=== PATIENT | male | born 1940 | race Caucasian/White ===

== ENCOUNTER 2021-11-26 03:09 | Emergency (ER) | payer OTHER ==
[2021-11-26 03:36] LABS: #Eosinphils 0.1 10x3/uL (0.0-0.5); #Monocytes 1.4 10x3/uL (0.0-1.1); #Neutrophils 9.4 10x3/uL (1.5-8.4); %Basophils 0.3 % (0.0-2.0); %Lymphocytes 12.8 % (18.0-47.0); %Monocytes 11.2 % (0.0-10.0); %Neutrophils 74.3 % (40.0-75.0); Hemoglobin 13.9 g/dL (13.5-17.5); Mean Corpuscular HGB CONC 31.4 g/dL (32.0-36.0); Mean Corpuscular Volume 98.7 fl (81.2-95.1); Mean Platelet Volume 12.2 fl (7.4-10.4); Platelet Count 133 10x3/uL (150-450); RBC Distribution Width 12.3 % (11.5-14.5); Red Blood Cell (RBC) Count 4.49 10x6/uL (4.32-5.72); White Blood Cell (WBC) Count 12.6 10x3/uL (3.5-10.5)
[2021-11-26] MEDS ORDERED: Morphine 4 MG/ML VIAL ONE (03:47)
[2021-11-26 03:48] LABS: ALT (SGPT) 34 U/L (8-55); AST (SGOT) 36 U/L (5-34); Albumin 3.9 g/dL (3.4-4.8); Alkaline Phosphatase 54 U/L (40-110); Anion Gap 12 mmol/L (10-20); BUN (Urea Nitrogen) 36 mg/dL (8.4-25.7); Bilirubin, Total 0.7 mg/dL (0.2-1.2); CK (CPK) 126 U/L (30-200); Calc. Creatinine Clearance 0 mL/min (70-130); Calcium 9.2 mg/dL (7.8-10.44); Carbon Dioxide 31 mmol/L (23-31); Chloride 100 mmol/L (98-107); Globulin 2.8 g/dL (2.4-3.5); Glucose 101 mg/dL (83-110); Potassium 4.7 mmol/L (3.5-5.1); Protein, Total 6.7 g/dL (5.8-8.1); Sodium 138 mmol/L (136-145)
[2021-11-26 03:53] LABS: INR-International Normal Ratio 1.1; PTT 26.5 sec (22.0-33.0); Prothrombin Time 11.9 sec (9.5-12.1)
[2021-11-26 04:02] LABS: Bilirubin Neg (Negative); Blood, Urine Negative (Negative); Clarity Clear (Clear); Glucose, Urine (Dipstick) Normal (Negative); Ketone, Urine 5 mg/dL (Negative); Leukocyte Negative (Negative); Nitrite Negative (Negative); Protein, Urine (Dipstick) Negative (Neg-Trace); Urobilinogen Normal mg/dL (Less than 2); pH, Urine 6.5 (5.0-9.0)
[2021-11-26 04:07] LABS: Lipase 75 U/L (8-78); Magnesium 2.2 mg/dL (1.6-2.6)
[2021-11-26 04:42] LABS: SARS-CoV-2 NAA Rapid Test Not Detected (NotDetected)
[2021-11-26] MEDS ORDERED: Enoxaparin Sodium 100 MG/ML SYRINGE ONE (05:45)
[2021-11-26] MEDS ORDERED: Ketorolac Tromethamine 30 MG/ML VIAL ONE (05:45)
[2021-11-26] MEDS ORDERED: Fentanyl 100 MCG/2 ML VIAL ONE (05:45)
[2021-11-26 07:28] LABS: Troponin I 0.015 ng/mL (< 0.028)
== END 2021-11-26 10:19 | disposition short-term general hospital (02) ==
LOC: CSHERS 03:09 → EEVIPCON 03:09 → CSHERS 10:19
DX: I20.9 Angina pectoris, unspecified (principal); Z20.822 Contact with and (suspected) exposure to COVID-19; I11.0 Hypertensive heart disease with heart failure; I50.9 Heart failure, unspecified; Z86.73 Personal history of transient ischemic attack (TIA), and cerebral infarction without residual deficits; M19.90 Unspecified osteoarthritis, unspecified site; Z79.82 Long term (current) use of aspirin; Z79.899 Other long term (current) drug therapy
CPT/HCPCS: 71045; 80053; 81003; 82550; 83690; 83735; 83880; 84484; 85025; 85610; 85730; 93005; 94760; 96372; 96374; 96375; 96376; J1650; J1885; J2270; J3010; U0002

== ENCOUNTER 2021-12-12 15:46 | Inpatient (IN) | payer OTHER ==
[2021-12-12] MEDS ORDERED: methylPREDNISolone Sod Succ/PF 125 MG/2 ML VIAL ONE (16:31)
[2021-12-12] MEDS ORDERED: diphenhydrAMINE 50 MG/ML VIAL ONE (16:31)
[2021-12-12] MEDS ORDERED: Famotidine/PF 20 mg/2ml Vial ONE (16:32)
[2021-12-12 16:38] LABS: #Monocytes 0.8 10x3/uL (0.0-1.1); #Neutrophils 8.2 10x3/uL (1.5-8.4); %Basophils 0.3 % (0.0-2.0); %Eosinophils 0.4 % (0.0-6.0); %Lymphocytes 8.2 % (18.0-47.0); %Monocytes 8.2 % (0.0-10.0); %Neutrophils 82.6 % (40.0-75.0); Mean Corpuscular Hemoglobin 31.5 pg (27.0-33.0); Mean Corpuscular Volume 98.3 fl (81.2-95.1); Mean Platelet Volume 11.9 fl (7.4-10.4); RBC Distribution Width 13.1 % (11.5-14.5); Red Blood Cell (RBC) Count 2.86 10x6/uL (4.32-5.72); White Blood Cell (WBC) Count 9.9 10x3/uL (3.5-10.5)
[2021-12-12 16:39] LABS: Platelet Count 108 10x3/uL (150-450)
[2021-12-12 16:42] LABS: INR-International Normal Ratio 1.3; Prothrombin Time 14.6 sec (9.5-12.1)
[2021-12-12 16:48] LABS: ALT (SGPT) 23 U/L (8-55); AST (SGOT) 22 U/L (5-34); Albumin 2.8 g/dL (3.4-4.8); Alkaline Phosphatase 49 U/L (40-110); Anion Gap 10 mmol/L (10-20); BUN (Urea Nitrogen) 28 mg/dL (8.4-25.7); Bilirubin, Total 0.5 mg/dL (0.2-1.2); Calc. Creatinine Clearance 0 mL/min (70-130); Calcium 7.5 mg/dL (7.8-10.44); Carbon Dioxide 27 mmol/L (23-31); Chloride 103 mmol/L (98-107); Globulin 2.3 g/dL (2.4-3.5); Glucose 152 mg/dL (83-110); Lipase 58 U/L (8-78); Potassium 4.2 mmol/L (3.5-5.1); Protein, Total 5.1 g/dL (5.8-8.1); Sodium 136 mmol/L (136-145)
[2021-12-12 17:12] LABS: SARS-CoV-2 NAA Rapid Test Not Detected (NotDetected)
[2021-12-12] MEDS ORDERED: Fentanyl 100 MCG/2 ML VIAL ONE (17:26)
[2021-12-12 21:40] VITALS: BMI 33.3
[2021-12-12] MEDS: HYDROcodone/Acetaminophen 10/325 mg Tablet PO PRN (23:06)
[2021-12-12] MEDS: Sodium Chloride 0.9% 1,000 ML IV SCH (23:10)
[2021-12-13] MEDS: HYDROcodone/Acetaminophen 10/325 mg Tablet PO PRN ×3 (02:36→21:28)
[2021-12-13 03:38] LABS: #Monocytes 0.1 10x3/uL (0.0-1.1); #Neutrophils 8.2 10x3/uL (1.5-8.4); %Neutrophils 93.4 % (40.0-75.0); Hemoglobin 9.8 g/dL (13.5-17.5); Mean Corpuscular HGB CONC 31.7 g/dL (32.0-36.0); Mean Corpuscular Hemoglobin 30.5 pg (27.0-33.0); Mean Corpuscular Volume 96.3 fl (81.2-95.1); Mean Platelet Volume 12.2 fl (7.4-10.4); Platelet Count 125 10x3/uL (150-450); RBC Distribution Width 13.8 % (11.5-14.5); Red Blood Cell (RBC) Count 3.21 10x6/uL (4.32-5.72); White Blood Cell (WBC) Count 8.8 10x3/uL (3.5-10.5)
[2021-12-13 03:53] LABS: Anion Gap 14 mmol/L (10-20); BUN (Urea Nitrogen) 26 mg/dL (8.4-25.7); Calc. Creatinine Clearance 82 mL/min (70-130); Carbon Dioxide 21 mmol/L (23-31); Chloride 105 mmol/L (98-107); Glucose 204 mg/dL (83-110); Magnesium 2.1 mg/dL (1.6-2.6); Potassium 4.3 mmol/L (3.5-5.1); Sodium 136 mmol/L (136-145)
[2021-12-13] MEDS: Carvedilol 25 MG TAB PO SCH ×2 (08:29→17:20)
[2021-12-13 12:43] LABS: Hemoglobin A1c 5.9 % (4.0-6.0)
[2021-12-13] MEDS: Sodium Chloride 0.9% 1,000 ML IV SCH (17:25)
[2021-12-13] MEDS: Atorvastatin Calcium 40 MG TAB PO SCH (19:41)
[2021-12-14] MEDS: HYDROcodone/Acetaminophen 10/325 mg Tablet PO PRN (05:58)
[2021-12-14] MEDS: Carvedilol 25 MG TAB PO SCH ×2 (10:04→17:53)
[2021-12-14] MEDS ORDERED: Furosemide 40 MG/4 ML VIAL SLOW IVP SCH ×2 (13:45→18:00)
[2021-12-14] MEDS ORDERED: Polyethylene Glycol 3350 17 GM Packet PO PRN (17:18)
[2021-12-14] MEDS: HYDROcodone/Acetaminophen 5/325 mg Tablet PO PRN (18:42)
[2021-12-14] MEDS: Atorvastatin Calcium 40 MG TAB PO SCH (22:01)
[2021-12-15 03:51] LABS: #Basophils 0.1 10x3/uL (0.0-0.2); #Eosinphils 0.3 10x3/uL (0.0-0.5); #Monocytes 0.9 10x3/uL (0.0-1.1); #Neutrophils 7.6 10x3/uL (1.5-8.4); %Basophils 0.5 % (0.0-2.0); %Eosinophils 3.3 % (0.0-6.0); %Lymphocytes 9.4 % (18.0-47.0); %Monocytes 9.1 % (0.0-10.0); %Neutrophils 77.2 % (40.0-75.0); Hemoglobin 8.8 g/dL (13.5-17.5); Mean Corpuscular HGB CONC 31.1 g/dL (32.0-36.0); Mean Corpuscular Hemoglobin 31.1 pg (27.0-33.0); Mean Platelet Volume 11.8 fl (7.4-10.4); Platelet Count 140 10x3/uL (150-450); RBC Distribution Width 14.1 % (11.5-14.5); Red Blood Cell (RBC) Count 2.83 10x6/uL (4.32-5.72); White Blood Cell (WBC) Count 9.8 10x3/uL (3.5-10.5)
[2021-12-15 04:10] LABS: Anion Gap 13 mmol/L (10-20); BUN (Urea Nitrogen) 32 mg/dL (8.4-25.7); Calc. Creatinine Clearance 100 mL/min (70-130); Calcium 8.2 mg/dL (7.8-10.44); Carbon Dioxide 27 mmol/L (23-31); Chloride 103 mmol/L (98-107); Glucose 127 mg/dL (83-110); Potassium 4.3 mmol/L (3.5-5.1); Sodium 139 mmol/L (136-145)
[2021-12-15] MEDS: Carvedilol 25 MG TAB PO SCH (09:12)
[2021-12-15] MEDS: Polyethylene Glycol 3350 17 GM Packet PO SCH (09:14)
[2021-12-15] MEDS: Carvedilol 6.25 MG TAB PO SCH (16:15)
[2021-12-15] MEDS ORDERED: Furosemide 40 MG/4 ML VIAL SLOW IVP SCH (21:00)
[2021-12-15] MEDS: Atorvastatin Calcium 40 MG TAB PO SCH (21:06)
[2021-12-16 03:59] LABS: #Eosinphils 0.3 10x3/uL (0.0-0.5); #Monocytes 0.8 10x3/uL (0.0-1.1); %Basophils 0.2 % (0.0-2.0); %Eosinophils 3.8 % (0.0-6.0); %Lymphocytes 12.2 % (18.0-47.0); %Monocytes 9.5 % (0.0-10.0); %Neutrophils 73.9 % (40.0-75.0); Hemoglobin 8.9 g/dL (13.5-17.5); Mean Corpuscular HGB CONC 30.9 g/dL (32.0-36.0); Mean Corpuscular Hemoglobin 31.3 pg (27.0-33.0); Mean Corpuscular Volume 101.4 fl (81.2-95.1); Mean Platelet Volume 12.4 fl (7.4-10.4); Platelet Count 143 10x3/uL (150-450); Red Blood Cell (RBC) Count 2.84 10x6/uL (4.32-5.72); White Blood Cell (WBC) Count 8.2 10x3/uL (3.5-10.5)
[2021-12-16 04:28] LABS: Anion Gap 10 mmol/L (10-20); BUN (Urea Nitrogen) 28 mg/dL (8.4-25.7); Calc. Creatinine Clearance 115 mL/min (70-130); Calcium 8.7 mg/dL (7.8-10.44); Carbon Dioxide 30 mmol/L (23-31); Chloride 103 mmol/L (98-107); Glucose 97 mg/dL (83-110); Potassium 4.3 mmol/L (3.5-5.1); Sodium 139 mmol/L (136-145)
[2021-12-16] MEDS ORDERED: Albuterol Sulfate 2.5 mg/3 ml Neb NEB SCH (07:00)
[2021-12-16] MEDS: Clopidogrel Bisulfate 75 MG TAB PO SCH (08:39)
[2021-12-16] MEDS: Carvedilol 6.25 MG TAB PO SCH ×2 (08:40→16:40)
[2021-12-16] MEDS: Aspirin 81 mg Enteric Coated Tablet PO SCH (08:40)
[2021-12-16] MEDS: Polyethylene Glycol 3350 17 GM Packet PO SCH (08:40)
[2021-12-16] MEDS ORDERED: Furosemide 40 MG/4 ML VIAL SLOW IVP SCH ×2 (09:00→14:00)
[2021-12-16 11:10] LABS: Legionella Urinary Ag Negative (Negative)
[2021-12-16 11:11] LABS: Strep pneumo Urine Ag NEGATIVE (NEGATIVE)
[2021-12-16] MEDS: Atorvastatin Calcium 40 MG TAB PO SCH (20:34)
[2021-12-16] MEDS ORDERED: Mag-Al Plus 1200 MG/1200 MG/120 MG/30 ML UDCUP PO SCH (22:15)
[2021-12-17 04:25] LABS: #Eosinphils 0.3 10x3/uL (0.0-0.5); #Monocytes 0.9 10x3/uL (0.0-1.1); #Neutrophils 4.9 10x3/uL (1.5-8.4); %Basophils 0.4 % (0.0-2.0); %Eosinophils 4.7 % (0.0-6.0); %Lymphocytes 14.6 % (18.0-47.0); Hemoglobin 8.9 g/dL (13.5-17.5); Mean Corpuscular HGB CONC 30.9 g/dL (32.0-36.0); Mean Corpuscular Hemoglobin 31.4 pg (27.0-33.0); Mean Corpuscular Volume 101.8 fl (81.2-95.1); Mean Platelet Volume 11.7 fl (7.4-10.4); Platelet Count 175 10x3/uL (150-450); RBC Distribution Width 13.9 % (11.5-14.5); Red Blood Cell (RBC) Count 2.83 10x6/uL (4.32-5.72); White Blood Cell (WBC) Count 7.2 10x3/uL (3.5-10.5)
[2021-12-17 04:44] LABS: Anion Gap 13 mmol/L (10-20); BUN (Urea Nitrogen) 27 mg/dL (8.4-25.7); Calc. Creatinine Clearance 98 mL/min (70-130); Calcium 8.8 mg/dL (7.8-10.44); Carbon Dioxide 31 mmol/L (23-31); Chloride 100 mmol/L (98-107); Glucose 103 mg/dL (83-110); Potassium 4.4 mmol/L (3.5-5.1); Sodium 140 mmol/L (136-145)
[2021-12-17] MEDS: Clopidogrel Bisulfate 75 MG TAB PO SCH (07:40)
[2021-12-17] MEDS: Carvedilol 6.25 MG TAB PO SCH ×2 (07:40→17:31)
[2021-12-17] MEDS: Polyethylene Glycol 3350 17 GM Packet PO SCH (07:41)
[2021-12-17] MEDS: Aspirin 81 mg Enteric Coated Tablet PO SCH (07:41)
[2021-12-17] MEDS: HYDROcodone/Acetaminophen 5/325 mg Tablet PO PRN (20:50)
[2021-12-17] MEDS: Doxycycline 100 MG CAP PO SCH (21:03)
[2021-12-17] MEDS: Atorvastatin Calcium 40 MG TAB PO SCH (21:03)
[2021-12-17] MEDS: cefTRIAXone\\ROCEPHIN 1 GM in Sodium Chloride 0.9% 100 ML IVPB SCH (21:03)
[2021-12-18 04:26] LABS: #Eosinphils 0.3 10x3/uL (0.0-0.5); #Monocytes 0.9 10x3/uL (0.0-1.1); #Neutrophils 5.4 10x3/uL (1.5-8.4); %Basophils 0.5 % (0.0-2.0); %Eosinophils 4.4 % (0.0-6.0); %Lymphocytes 13.2 % (18.0-47.0); %Neutrophils 69.5 % (40.0-75.0); Hemoglobin 9.2 g/dL (13.5-17.5); Mean Corpuscular Hemoglobin 30.4 pg (27.0-33.0); Mean Corpuscular Volume 101.3 fl (81.2-95.1); Mean Platelet Volume 11.3 fl (7.4-10.4); Platelet Count 199 10x3/uL (150-450); RBC Distribution Width 14.3 % (11.5-14.5); Red Blood Cell (RBC) Count 3.03 10x6/uL (4.32-5.72); White Blood Cell (WBC) Count 7.7 10x3/uL (3.5-10.5)
[2021-12-18 04:45] LABS: Anion Gap 12 mmol/L (10-20); BUN (Urea Nitrogen) 23 mg/dL (8.4-25.7); Calc. Creatinine Clearance 113 mL/min (70-130); Calcium 8.9 mg/dL (7.8-10.44); Carbon Dioxide 29 mmol/L (23-31); Chloride 101 mmol/L (98-107); Glucose 114 mg/dL (83-110); Potassium 4.6 mmol/L (3.5-5.1); Sodium 137 mmol/L (136-145)
[2021-12-18] MEDS: HYDROcodone/Acetaminophen 5/325 mg Tablet PO PRN (05:26)
[2021-12-18] MEDS: Furosemide 40 MG/4 ML VIAL SLOW IVP SCH ×2 (05:47→12:56)
[2021-12-18] MEDS: Carvedilol 6.25 MG TAB PO SCH ×2 (08:38→16:35)
[2021-12-18] MEDS: Polyethylene Glycol 3350 17 GM Packet PO SCH (08:39)
[2021-12-18] MEDS: Aspirin 81 mg Enteric Coated Tablet PO SCH (08:39)
[2021-12-18] MEDS: Doxycycline 100 MG CAP PO SCH ×2 (08:39→21:13)
[2021-12-18] MEDS: Clopidogrel Bisulfate 75 MG TAB PO SCH (08:39)
[2021-12-18] MEDS ORDERED: Furosemide 100 MG/10 ML VIAL SLOW IVP SCH (18:30)
[2021-12-18] MEDS: Atorvastatin Calcium 40 MG TAB PO SCH (21:13)
[2021-12-18] MEDS: cefTRIAXone\\ROCEPHIN 1 GM in Sodium Chloride 0.9% 100 ML IVPB SCH (21:14)
[2021-12-18] MEDS: Enoxaparin Sodium 40 MG/0.4 ML SYRINGE SC SCH (22:28)
[2021-12-19] MEDS: HYDROcodone/Acetaminophen 5/325 mg Tablet PO PRN (02:05)
[2021-12-19 04:13] LABS: #Basophils 0.1 10x3/uL (0.0-0.2); #Eosinphils 0.4 10x3/uL (0.0-0.5); #Monocytes 1.2 10x3/uL (0.0-1.1); #Neutrophils 5.2 10x3/uL (1.5-8.4); %Basophils 0.6 % (0.0-2.0); %Eosinophils 4.7 % (0.0-6.0); %Lymphocytes 15.2 % (18.0-47.0); %Monocytes 14.3 % (0.0-10.0); %Neutrophils 64.6 % (40.0-75.0); Hemoglobin 10.1 g/dL (13.5-17.5); Mean Corpuscular HGB CONC 31.1 g/dL (32.0-36.0); Mean Corpuscular Hemoglobin 31.1 pg (27.0-33.0); Platelet Count 231 10x3/uL (150-450); RBC Distribution Width 14.4 % (11.5-14.5); Red Blood Cell (RBC) Count 3.25 10x6/uL (4.32-5.72); White Blood Cell (WBC) Count 8.1 10x3/uL (3.5-10.5)
[2021-12-19 04:17] LABS: Anion Gap 11 mmol/L (10-20); BUN (Urea Nitrogen) 25 mg/dL (8.4-25.7); Calc. Creatinine Clearance 105 mL/min (70-130); Calcium 8.9 mg/dL (7.8-10.44); Carbon Dioxide 32 mmol/L (23-31); Chloride 98 mmol/L (98-107); Glucose 111 mg/dL (83-110); Potassium 4.4 mmol/L (3.5-5.1); Sodium 137 mmol/L (136-145)
[2021-12-19] MEDS: Furosemide 40 MG/4 ML VIAL SLOW IVP SCH ×2 (06:38→15:58)
[2021-12-19] MEDS: Carvedilol 6.25 MG TAB PO SCH ×2 (08:42→17:22)
[2021-12-19] MEDS: Doxycycline 100 MG CAP PO SCH ×2 (08:42→20:54)
[2021-12-19] MEDS: Clopidogrel Bisulfate 75 MG TAB PO SCH (08:42)
[2021-12-19] MEDS: Polyethylene Glycol 3350 17 GM Packet PO SCH (08:43)
[2021-12-19] MEDS: Aspirin 81 mg Enteric Coated Tablet PO SCH (08:43)
[2021-12-19] MEDS: HYDROcodone/Acetaminophen 10/325 mg Tablet PO PRN (11:24)
[2021-12-19] MEDS: cefTRIAXone\\ROCEPHIN 1 GM in Sodium Chloride 0.9% 100 ML IVPB SCH (20:42)
[2021-12-19] MEDS: Atorvastatin Calcium 40 MG TAB PO SCH (20:48)
[2021-12-19] MEDS: Enoxaparin Sodium 40 MG/0.4 ML SYRINGE SC SCH (20:54)
[2021-12-20 04:13] LABS: #Eosinphils 0.4 10x3/uL (0.0-0.5); #Monocytes 1.2 10x3/uL (0.0-1.1); #Neutrophils 5.7 10x3/uL (1.5-8.4); %Basophils 0.4 % (0.0-2.0); %Eosinophils 4.4 % (0.0-6.0); %Lymphocytes 13.8 % (18.0-47.0); %Monocytes 13.7 % (0.0-10.0); %Neutrophils 67.3 % (40.0-75.0); Hemoglobin 9.8 g/dL (13.5-17.5); Mean Corpuscular HGB CONC 31.7 g/dL (32.0-36.0); Mean Corpuscular Hemoglobin 31.3 pg (27.0-33.0); Mean Corpuscular Volume 98.7 fl (81.2-95.1); Mean Platelet Volume 10.8 fl (7.4-10.4); Platelet Count 232 10x3/uL (150-450); RBC Distribution Width 14.4 % (11.5-14.5); Red Blood Cell (RBC) Count 3.13 10x6/uL (4.32-5.72); White Blood Cell (WBC) Count 8.5 10x3/uL (3.5-10.5)
[2021-12-20 04:26] LABS: Anion Gap 14 mmol/L (10-20); BUN (Urea Nitrogen) 32 mg/dL (8.4-25.7); Calc. Creatinine Clearance 86 mL/min (70-130); Calcium 8.8 mg/dL (7.8-10.44); Carbon Dioxide 31 mmol/L (23-31); Chloride 96 mmol/L (98-107); Glucose 102 mg/dL (83-110); Potassium 4.3 mmol/L (3.5-5.1); Sodium 137 mmol/L (136-145)
[2021-12-20] MEDS: Furosemide 40 MG/4 ML VIAL SLOW IVP SCH ×2 (06:09→14:53)
[2021-12-20] MEDS: Doxycycline 100 MG CAP PO SCH (08:16)
[2021-12-20] MEDS: Polyethylene Glycol 3350 17 GM Packet PO SCH (08:16)
[2021-12-20] MEDS: Clopidogrel Bisulfate 75 MG TAB PO SCH (08:17)
[2021-12-20] MEDS: Aspirin 81 mg Enteric Coated Tablet PO SCH (08:17)
[2021-12-20] MEDS: Carvedilol 6.25 MG TAB PO SCH ×2 (08:17→16:56)
[2021-12-20 18:24] LABS: SARS-CoV-2 PCR by NAA Not Detected (NotDetected)
[2021-12-20 21:00] VITALS: BP 97/56; TEMP 96.5
== END 2021-12-20 20:40 | disposition home or self-care (01) | DRG 291 ==
LOC: CSHERS 15:46 → EEVIPCON 15:46 → INTOOBSV 21:20 → CSHICU 21:20 → CSHTELE 12-13 00:50 → OBSVTOIN 12-16 08:33
PROVIDERS: ADMIT Family Medicine; ATTEND Internal Medicine
PROC: 30233N1 Transfusion of Nonautologous Red Blood Cells into Peripheral Vein, Percutaneous Approach (ICD-10-PCS; principal; 2021-12-12)
DX: I11.0 Hypertensive heart disease with heart failure (principal); J96.01 Acute respiratory failure with hypoxia; I50.33 Acute on chronic diastolic (congestive) heart failure; I48.92 Unspecified atrial flutter; D62 Acute posthemorrhagic anemia; I25.10 Atherosclerotic heart disease of native coronary artery without angina pectoris; I48.0 Paroxysmal atrial fibrillation; I44.30 Unspecified atrioventricular block; I34.0 Nonrheumatic mitral (valve) insufficiency; Z20.822 Contact with and (suspected) exposure to COVID-19; S30.1XXA Contusion of abdominal wall, initial encounter; S70.02XA Contusion of left hip, initial encounter; W19.XXXA Unspecified fall, initial encounter; Y92.89 Other specified places as the place of occurrence of the external cause; Z88.8 Allergy status to other drugs, medicaments and biological substances; Z95.5 Presence of coronary angioplasty implant and graft; Z86.73 Personal history of transient ischemic attack (TIA), and cerebral infarction without residual deficits; Z87.891 Personal history of nicotine dependence; Z79.01 Long term (current) use of anticoagulants
CPT/HCPCS: 36415; 36430; 70450; 71045; 71046; 71260; 72125; 74177; 78451; 80048; 80053; 83036; 83690; 83735; 83880; 84484; 85025; 85379; 85610; 86850; 86900; 86901; 87449; 87899; 93005; 93306; 93970; 94640; 94760; 96374; 96375; A9540; J0696; J1200; J1650; J1940; J2930; J3010; J3490; J7050; J7611; J7620; P9016; S0028; U0002; U0003; U0005

== ENCOUNTER 2022-01-07 10:32 | Inpatient (IN) | payer OTHER ==
[2022-01-07] MEDS ORDERED: Morphine 4 MG/ML VIAL ONE (11:15)
[2022-01-07 11:38] LABS: #Eosinphils 0.2 10x3/uL (0.0-0.5); #Neutrophils 5.9 10x3/uL (1.5-8.4); %Basophils 0.4 % (0.0-2.0); %Eosinophils 2.9 % (0.0-6.0); %Lymphocytes 7.6 % (18.0-47.0); %Monocytes 12.6 % (0.0-10.0); %Neutrophils 76.1 % (40.0-75.0); Hemoglobin 11.3 g/dL (13.5-17.5); Mean Corpuscular Hemoglobin 31.5 pg (27.0-33.0); Mean Corpuscular Volume 101.7 fl (81.2-95.1); Mean Platelet Volume 11.1 fl (7.4-10.4); Platelet Count 159 10x3/uL (150-450); RBC Distribution Width 14.6 % (11.5-14.5); Red Blood Cell (RBC) Count 3.59 10x6/uL (4.32-5.72); White Blood Cell (WBC) Count 7.8 10x3/uL (3.5-10.5)
[2022-01-07 11:54] LABS: ALT (SGPT) 23 U/L (8-55); AST (SGOT) 25 U/L (5-34); Albumin 3.3 g/dL (3.4-4.8); Alkaline Phosphatase 72 U/L (40-110); Anion Gap 15 mmol/L (10-20); BUN (Urea Nitrogen) 27 mg/dL (8.4-25.7); Bilirubin, Total 0.8 mg/dL (0.2-1.2); Calc. Creatinine Clearance 0 mL/min (70-130); Carbon Dioxide 26 mmol/L (23-31); Chloride 103 mmol/L (98-107); Globulin 2.8 g/dL (2.4-3.5); Glucose 97 mg/dL (83-110); Lipase 33 U/L (8-78); Protein, Total 6.1 g/dL (5.8-8.1); Sodium 140 mmol/L (136-145)
[2022-01-07 12:11] LABS: CKMB 3.4 ng/mL (0-6.6)
[2022-01-07 13:30] LABS: SARS-CoV-2 NAA Rapid Test Not Detected (NotDetected)
[2022-01-07] MEDS ORDERED: Furosemide 40 MG/4 ML VIAL ONE (19:26)
[2022-01-07] MEDS ORDERED: Calcium Carbonate 500 MG ChewTAB PO PRN (19:58)
[2022-01-07] MEDS ORDERED: Ondansetron PF 4 MG/2 ML Vial IVP PRN (19:58)
[2022-01-07] MEDS ORDERED: Senokot S 8.6-50 MG TAB PO PRN (19:58)
[2022-01-07] MEDS ORDERED: Guaifenesin DM 100-10/5 ML UDCUP PO PRN (19:58)
[2022-01-07] MEDS ORDERED: Zolpidem Tartrate 5 MG TAB PO PRN (19:58)
[2022-01-07] MEDS ORDERED: Nitroglycerin 0.4 MG TAB (25 Tab Bottle) SL PRN (20:01)
[2022-01-07] MEDS ORDERED: Albuterol Sulfate 2.5 mg/3 ml Neb NEB PRN (20:02)
[2022-01-07 22:30] LABS: INR-International Normal Ratio 1.2; PTT 27.9 sec (22.0-33.0); Prothrombin Time 13.4 sec (9.5-12.1)
[2022-01-07 22:49] LABS: CKMB 3.5 ng/mL (0-6.6)
[2022-01-07] MEDS ORDERED: Enoxaparin Sodium 80 MG/0.8 ML SYRINGE SC SCH (23:59)
[2022-01-08] MEDS: Atorvastatin Calcium 40 MG TAB PO SCH ×2 (00:33→20:48)
[2022-01-08 04:18] LABS: INR-International Normal Ratio 1.3; PTT 33.3 sec (22.0-33.0); Prothrombin Time 14.4 sec (9.5-12.1)
[2022-01-08 04:20] LABS: #Eosinphils 0.2 10x3/uL (0.0-0.5); #Neutrophils 4.5 10x3/uL (1.5-8.4); %Basophils 0.5 % (0.0-2.0); %Eosinophils 3.7 % (0.0-6.0); %Lymphocytes 11.4 % (18.0-47.0); %Monocytes 14.8 % (0.0-10.0); %Neutrophils 69.3 % (40.0-75.0); Hemoglobin 11.3 g/dL (13.5-17.5); Mean Corpuscular HGB CONC 30.1 g/dL (32.0-36.0); Mean Corpuscular Hemoglobin 30.6 pg (27.0-33.0); Mean Corpuscular Volume 101.6 fl (81.2-95.1); Mean Platelet Volume 11.3 fl (7.4-10.4); Platelet Count 163 10x3/uL (150-450); RBC Distribution Width 14.6 % (11.5-14.5); Red Blood Cell (RBC) Count 3.69 10x6/uL (4.32-5.72); White Blood Cell (WBC) Count 6.5 10x3/uL (3.5-10.5)
[2022-01-08 04:22] LABS: Anion Gap 13 mmol/L (10-20); BUN (Urea Nitrogen) 22 mg/dL (8.4-25.7); Calc. Creatinine Clearance 101 mL/min (70-130); Calcium 8.9 mg/dL (7.8-10.44); Carbon Dioxide 29 mmol/L (23-31); Chloride 102 mmol/L (98-107); Glucose 100 mg/dL (83-110); Potassium 3.8 mmol/L (3.5-5.1); Sodium 140 mmol/L (136-145)
[2022-01-08 04:42] LABS: Thyroid Stimulating Hormone 0.9084 uIU/mL (0.35-4.94)
[2022-01-08] MEDS: Furosemide 40 MG/4 ML VIAL SLOW IVP SCH ×2 (05:02→18:37)
[2022-01-08] MEDS: Acetaminophen 325 MG TAB PO PRN ×2 (05:03→20:48)
[2022-01-08] MEDS: Enoxaparin Sodium 80 MG/0.8 ML SYRINGE SC SCH ×2 (08:57→20:49)
[2022-01-08] MEDS ORDERED: Aspirin 81 mg Enteric Coated Tablet PO SCH (09:00)
[2022-01-08 12:15] VITALS: BMI 34.2
[2022-01-08] MEDS ORDERED: Warfarin Sodium 5 MG TAB PO SCH (17:00)
[2022-01-08] MEDS: Lisinopril 5 MG TAB PO SCH (18:36)
[2022-01-08] MEDS: Carvedilol 6.25 MG TAB PO SCH (18:36)
[2022-01-08] MEDS: Furosemide 20 MG/2 ML VIAL SLOW IVP SCH ×2 (18:37→18:59)
[2022-01-08] MEDS ORDERED: traMADol HCl 50 MG TAB PO SCH (21:15)
[2022-01-09] MEDS: Acetaminophen 325 MG TAB PO PRN (02:58)
[2022-01-09 04:37] LABS: Hemoglobin 11.9 g/dL (13.5-17.5); Mean Corpuscular HGB CONC 30.4 g/dL (32.0-36.0); Mean Corpuscular Hemoglobin 30.7 pg (27.0-33.0); Mean Corpuscular Volume 101.3 fl (81.2-95.1); Platelet Count 170 10x3/uL (150-450); RBC Distribution Width 14.4 % (11.5-14.5); Red Blood Cell (RBC) Count 3.87 10x6/uL (4.32-5.72); White Blood Cell (WBC) Count 5.1 10x3/uL (3.5-10.5)
[2022-01-09 04:48] LABS: Anion Gap 14 mmol/L (10-20); BUN (Urea Nitrogen) 22 mg/dL (8.4-25.7); Calc. Creatinine Clearance 107 mL/min (70-130); Calcium 8.8 mg/dL (7.8-10.44); Carbon Dioxide 29 mmol/L (23-31); Chloride 102 mmol/L (98-107); Glucose 95 mg/dL (83-110); Potassium 4.4 mmol/L (3.5-5.1); Sodium 141 mmol/L (136-145)
[2022-01-09] MEDS: traMADol HCl 50 MG TAB PO PRN ×2 (04:55→22:05)
[2022-01-09] MEDS: Furosemide 40 MG/4 ML VIAL SLOW IVP SCH (05:52)
[2022-01-09 08:49] LABS: INR-International Normal Ratio 1.2; Prothrombin Time 13.3 sec (9.5-12.1)
[2022-01-09] MEDS: Enoxaparin Sodium 80 MG/0.8 ML SYRINGE SC SCH (10:00)
[2022-01-09] MEDS: Carvedilol 6.25 MG TAB PO SCH ×2 (10:01→16:25)
[2022-01-09] MEDS: Lisinopril 5 MG TAB PO SCH (10:01)
[2022-01-09] MEDS: Clopidogrel Bisulfate 75 MG TAB PO SCH (10:16)
[2022-01-09] MEDS ORDERED: Furosemide 20 MG TAB PO SCH (16:00)
[2022-01-09] MEDS ORDERED: Warfarin Sodium 7.5 MG TAB PO SCH (17:00)
[2022-01-09] MEDS: Atorvastatin Calcium 40 MG TAB PO SCH (22:02)
[2022-01-09] MEDS: Apixaban 5 MG TAB PO SCH (22:02)
[2022-01-10] MEDS: Apixaban 5 MG TAB PO SCH (07:48)
[2022-01-10] MEDS: Carvedilol 6.25 MG TAB PO SCH (07:49)
[2022-01-10] MEDS: Clopidogrel Bisulfate 75 MG TAB PO SCH (07:49)
[2022-01-10] MEDS ORDERED: Furosemide 20 MG TAB PO SCH (09:00)
[2022-01-10 12:17] VITALS: BP 104/50; TEMP 96.5
[2022-01-10] MEDS: Lisinopril 5 MG TAB PO SCH (13:02)
[2022-01-10] MEDS: traMADol HCl 50 MG TAB PO PRN (13:26)
== END 2022-01-10 16:11 | DRG 291 ==
LOC: CSHERS 10:32 → CSHTELE 22:44
PROVIDERS: ADMIT Student in an Organized Health Care Education/Training Program; ATTEND Internal Medicine
DX: I13.0 Hypertensive heart and chronic kidney disease with heart failure and stage 1 through stage 4 chronic kidney disease, or unspecified chronic kidney disease (principal); J96.01 Acute respiratory failure with hypoxia; I50.33 Acute on chronic diastolic (congestive) heart failure; I48.92 Unspecified atrial flutter; Z20.822 Contact with and (suspected) exposure to COVID-19; E78.5 Hyperlipidemia, unspecified; I48.0 Paroxysmal atrial fibrillation; D53.9 Nutritional anemia, unspecified; N18.2 Chronic kidney disease, stage 2 (mild); I25.10 Atherosclerotic heart disease of native coronary artery without angina pectoris; Z95.5 Presence of coronary angioplasty implant and graft; Z88.8 Allergy status to other drugs, medicaments and biological substances; Z79.82 Long term (current) use of aspirin; Z79.899 Other long term (current) drug therapy; Z79.01 Long term (current) use of anticoagulants; Z86.73 Personal history of transient ischemic attack (TIA), and cerebral infarction without residual deficits
CPT/HCPCS: 36415; 71045; 80048; 80053; 82553; 82607; 82746; 83690; 83880; 84443; 84484; 85025; 85027; 85610; 85730; 93005; 93010; 94640; 94760; 96374; 96375; J1650; J1940; J2270; J7620; U0002

== ENCOUNTER 2022-02-23 07:40 | Inpatient (IN) | payer OTHER ==
[2022-02-23 08:48] LABS: #Eosinphils 0.1 10x3/uL (0.0-0.5); #Monocytes 1.3 10x3/uL (0.0-1.1); #Neutrophils 6.5 10x3/uL (1.5-8.4); %Basophils 0.2 % (0.0-2.0); %Eosinophils 0.9 % (0.0-6.0); %Lymphocytes 11.8 % (18.0-47.0); %Monocytes 14.4 % (0.0-10.0); %Neutrophils 72.4 % (40.0-75.0); Hemoglobin 9.2 g/dL (13.5-17.5); Mean Corpuscular HGB CONC 31.3 g/dL (32.0-36.0); Mean Corpuscular Hemoglobin 30.5 pg (27.0-33.0); Mean Corpuscular Volume 97.4 fl (81.2-95.1); Mean Platelet Volume 11.4 fl (7.4-10.4); Platelet Count 142 10x3/uL (150-450); RBC Distribution Width 13.6 % (11.5-14.5); Red Blood Cell (RBC) Count 3.02 10x6/uL (4.32-5.72)
[2022-02-23 09:00] LABS: ALT (SGPT) 14 U/L (8-55); AST (SGOT) 19 U/L (5-34); Albumin 3.1 g/dL (3.4-4.8); Alkaline Phosphatase 52 U/L (40-110); Anion Gap 14 mmol/L (10-20); BUN (Urea Nitrogen) 21 mg/dL (8.4-25.7); Bilirubin, Total 1.1 mg/dL (0.2-1.2); CK (CPK) 136 U/L (30-200); Calc. Creatinine Clearance 0 mL/min (70-130); Calcium 8.4 mg/dL (7.8-10.44); Carbon Dioxide 25 mmol/L (23-31); Chloride 103 mmol/L (98-107); Glucose 115 mg/dL (83-110); Protein, Total 5.1 g/dL (5.8-8.1); Sodium 138 mmol/L (136-145)
[2022-02-23 09:17] LABS: PTT 49.9 sec (22.0-33.0); Prothrombin Time 65.8 sec (9.5-12.1)
[2022-02-23 09:19] LABS: INR-International Normal Ratio 6.7
[2022-02-23 09:28] LABS: SARS-CoV-2 NAA Rapid Test Not Detected (NotDetected)
[2022-02-23] MEDS ORDERED: Morphine 2 MG/ML VIAL ONE (09:42)
[2022-02-23] MEDS ORDERED: Nitroglycerin 0.4 MG TAB (25 Tab Bottle) SL PRN (10:17)
[2022-02-23] MEDS ORDERED: Ondansetron PF 4 MG/2 ML Vial IVP PRN (10:19)
[2022-02-23] MEDS ORDERED: Acetaminophen 325 MG TAB PO PRN (10:19)
[2022-02-23 11:26] LABS: Troponin I Less than 0.010 ng/mL (< 0.028)
[2022-02-23] MEDS: HYDROcodone/Acetaminophen 10/325 mg Tablet PO PRN ×2 (14:10→20:32)
[2022-02-23 14:51] LABS: Troponin I Less than 0.010 ng/mL (< 0.028)
[2022-02-23] MEDS: Carvedilol 6.25 MG TAB PO SCH (17:09)
[2022-02-23] MEDS: Atorvastatin Calcium 40 MG TAB PO SCH (20:29)
[2022-02-24 04:53] LABS: Anion Gap 10 mmol/L (10-20); BUN (Urea Nitrogen) 19 mg/dL (8.4-25.7); Calc. Creatinine Clearance 101 mL/min (70-130); Calcium 8.4 mg/dL (7.8-10.44); Carbon Dioxide 27 mmol/L (23-31); Chloride 105 mmol/L (98-107); Glucose 98 mg/dL (83-110); Potassium 4.5 mmol/L (3.5-5.1); Sodium 137 mmol/L (136-145)
[2022-02-24 04:59] LABS: #Eosinphils 0.1 10x3/uL (0.0-0.5); #Monocytes 1.2 10x3/uL (0.0-1.1); #Neutrophils 6.4 10x3/uL (1.5-8.4); %Basophils 0.5 % (0.0-2.0); %Eosinophils 1.5 % (0.0-6.0); %Lymphocytes 9.4 % (18.0-47.0); %Monocytes 13.5 % (0.0-10.0); %Neutrophils 74.9 % (40.0-75.0); Hemoglobin 9.2 g/dL (13.5-17.5); Mean Corpuscular HGB CONC 31.6 g/dL (32.0-36.0); Mean Platelet Volume 11.2 fl (7.4-10.4); RBC Distribution Width 13.6 % (11.5-14.5); Red Blood Cell (RBC) Count 2.97 10x6/uL (4.32-5.72); White Blood Cell (WBC) Count 8.5 10x3/uL (3.5-10.5)
[2022-02-24 05:10] LABS: Platelet Count 144 10x3/uL (150-450)
[2022-02-24 06:29] LABS: Prothrombin Time 80.5 sec (9.5-12.1)
[2022-02-24 06:31] LABS: INR-International Normal Ratio 8.3
[2022-02-24] MEDS: Carvedilol 6.25 MG TAB PO SCH ×2 (08:44→15:41)
[2022-02-24] MEDS: Furosemide 20 MG TAB PO SCH (08:44)
[2022-02-24] MEDS: Lisinopril 5 MG TAB PO SCH (08:45)
[2022-02-24] MEDS: HYDROcodone/Acetaminophen 10/325 mg Tablet PO PRN ×3 (08:49→20:34)
[2022-02-24] MEDS: Atorvastatin Calcium 40 MG TAB PO SCH (20:33)
[2022-02-25 05:49] LABS: #Eosinphils 0.1 10x3/uL (0.0-0.5); #Monocytes 1.2 10x3/uL (0.0-1.1); #Neutrophils 6.2 10x3/uL (1.5-8.4); %Basophils 0.3 % (0.0-2.0); %Eosinophils 1.6 % (0.0-6.0); %Lymphocytes 11.4 % (18.0-47.0); %Monocytes 13.5 % (0.0-10.0); %Neutrophils 72.7 % (40.0-75.0); Mean Corpuscular HGB CONC 30.5 g/dL (32.0-36.0); Mean Corpuscular Hemoglobin 30.5 pg (27.0-33.0); Mean Platelet Volume 10.8 fl (7.4-10.4); Platelet Count 157 10x3/uL (150-450); RBC Distribution Width 13.2 % (11.5-14.5); Red Blood Cell (RBC) Count 2.95 10x6/uL (4.32-5.72); White Blood Cell (WBC) Count 8.6 10x3/uL (3.5-10.5)
[2022-02-25 06:05] LABS: Anion Gap 13 mmol/L (10-20); BUN (Urea Nitrogen) 17 mg/dL (8.4-25.7); Calc. Creatinine Clearance 117 mL/min (70-130); Calcium 8.6 mg/dL (7.8-10.44); Carbon Dioxide 27 mmol/L (23-31); Chloride 100 mmol/L (98-107); Glucose 112 mg/dL (83-110); Potassium 4.6 mmol/L (3.5-5.1); Sodium 135 mmol/L (136-145)
[2022-02-25] MEDS: HYDROcodone/Acetaminophen 10/325 mg Tablet PO PRN ×2 (06:15→20:35)
[2022-02-25 06:18] LABS: INR-International Normal Ratio 6.9
[2022-02-25] MEDS: Aspirin 81 mg Enteric Coated Tablet PO SCH (08:52)
[2022-02-25] MEDS: Clopidogrel Bisulfate 75 MG TAB PO SCH (08:52)
[2022-02-25] MEDS: Furosemide 20 MG TAB PO SCH (08:53)
[2022-02-25] MEDS: Lisinopril 5 MG TAB PO SCH (08:54)
[2022-02-25] MEDS: Carvedilol 6.25 MG TAB PO SCH ×2 (10:01→17:07)
[2022-02-25] MEDS: Atorvastatin Calcium 40 MG TAB PO SCH (20:35)
[2022-02-26 04:55] LABS: Prothrombin Time 62.5 sec (9.5-12.1)
[2022-02-26 04:58] LABS: INR-International Normal Ratio 6.4
[2022-02-26] MEDS: Carvedilol 6.25 MG TAB PO SCH ×2 (09:22→16:19)
[2022-02-26] MEDS: Lisinopril 5 MG TAB PO SCH (09:22)
[2022-02-26] MEDS: Furosemide 20 MG TAB PO SCH (09:35)
[2022-02-26] MEDS: Clopidogrel Bisulfate 75 MG TAB PO SCH (09:35)
[2022-02-26] MEDS: Aspirin 81 mg Enteric Coated Tablet PO SCH (09:35)
[2022-02-26] MEDS: Albuterol Sulfate 2.5 mg/3 ml Neb NEB PRN ×2 (10:18→15:20)
[2022-02-26] MEDS: HYDROcodone/Acetaminophen 10/325 mg Tablet PO PRN ×2 (16:19→20:46)
[2022-02-26] MEDS: Atorvastatin Calcium 40 MG TAB PO SCH (20:46)
[2022-02-27] MEDS: Albuterol Sulfate 2.5 mg/3 ml Neb NEB PRN ×3 (04:23→19:09)
[2022-02-27 05:29] LABS: INR-International Normal Ratio 3.8; PTT 53.6 sec (22.0-33.0); Prothrombin Time 38.2 sec (9.5-12.1)
[2022-02-27] MEDS: HYDROcodone/Acetaminophen 10/325 mg Tablet PO PRN ×3 (06:42→20:56)
[2022-02-27] MEDS: Carvedilol 6.25 MG TAB PO SCH ×2 (09:06→15:55)
[2022-02-27] MEDS: Furosemide 20 MG TAB PO SCH (09:07)
[2022-02-27] MEDS: Clopidogrel Bisulfate 75 MG TAB PO SCH (09:07)
[2022-02-27] MEDS: Lisinopril 5 MG TAB PO SCH (09:07)
[2022-02-27] MEDS: Aspirin 81 mg Enteric Coated Tablet PO SCH (09:07)
[2022-02-27 11:26] VITALS: BMI 33.0
[2022-02-27] MEDS: Atorvastatin Calcium 40 MG TAB PO SCH (20:50)
[2022-02-28 05:20] LABS: INR-International Normal Ratio 2.3; Prothrombin Time 23.9 sec (9.5-12.1)
[2022-02-28] MEDS ORDERED: Rivaroxaban 10 MG TAB PO SCH (06:00)
[2022-02-28 06:06] LABS: PTT 44.4 sec (22.0-33.0)
[2022-02-28] MEDS ORDERED: Lidocaine 1% (PF) 30 ML VIAL IJ SCH (10:00)
[2022-02-28] MEDS: Clopidogrel Bisulfate 75 MG TAB PO SCH (10:15)
[2022-02-28] MEDS: Furosemide 20 MG TAB PO SCH (10:16)
[2022-02-28] MEDS: Lisinopril 5 MG TAB PO SCH (10:16)
[2022-02-28] MEDS: Carvedilol 6.25 MG TAB PO SCH ×2 (10:17→17:13)
[2022-02-28] MEDS: Aspirin 81 mg Enteric Coated Tablet PO SCH (10:18)
[2022-02-28] MEDS: HYDROcodone/Acetaminophen 10/325 mg Tablet PO PRN (10:20)
[2022-02-28 16:49] VITALS: BP 123/57; TEMP 98.6
[2022-02-28] MEDS: Albuterol Sulfate 2.5 mg/3 ml Neb NEB PRN (17:23)
== END 2022-02-28 19:06 | DRG 553 ==
LOC: CSHERS 07:40 → CSHTELE 13:57
PROVIDERS: ADMIT Family Medicine; ATTEND Family Medicine
PROC: 0S9C3ZZ Drainage of Right Knee Joint, Percutaneous Approach (ICD-10-PCS; principal; 2022-02-28)
DX: M25.061 Hemarthrosis, right knee (principal); J96.01 Acute respiratory failure with hypoxia; D68.9 Coagulation defect, unspecified; I50.32 Chronic diastolic (congestive) heart failure; R04.2 Hemoptysis; I48.92 Unspecified atrial flutter; I48.91 Unspecified atrial fibrillation; Z20.822 Contact with and (suspected) exposure to COVID-19; D64.9 Anemia, unspecified; I25.10 Atherosclerotic heart disease of native coronary artery without angina pectoris; E78.5 Hyperlipidemia, unspecified; I11.0 Hypertensive heart disease with heart failure; Z91.041 Radiographic dye allergy status; Z79.01 Long term (current) use of anticoagulants; Z79.02 Long term (current) use of antithrombotics/antiplatelets; Z95.5 Presence of coronary angioplasty implant and graft; Z98.890 Other specified postprocedural states
CPT/HCPCS: 36415; 71045; 80048; 80053; 82550; 83880; 84484; 85025; 85610; 85730; 87070; 87205; 93005; 93010; 94760; 96374; J2001; J2270; J7611; U0002

== ENCOUNTER 2022-03-05 16:50 | Emergency (ER) | payer OTHER ==
[~2022-03-05 16:50] MED LIST: Iopamidol 370 76% 100 ML VIAL ONE
[2022-03-05] MEDS ORDERED: diphenhydrAMINE 50 MG/ML VIAL ONE (18:33)
[2022-03-05] MEDS ORDERED: Famotidine/PF 20 mg/2ml Vial ONE (18:33)
[2022-03-05] MEDS ORDERED: methylPREDNISolone Sod Succ 40 MG VIAL ONE (18:33)
[2022-03-05 18:42] LABS: Anion Gap 13 mmol/L (10-20); BUN (Urea Nitrogen) 15 mg/dL (8.4-25.7); Calc. Creatinine Clearance 0 mL/min (70-130); Calcium 8.6 mg/dL (7.8-10.44); Carbon Dioxide 25 mmol/L (23-31); Chloride 103 mmol/L (98-107); Glucose 81 mg/dL (83-110); Potassium 4.3 mmol/L (3.5-5.1); Sodium 137 mmol/L (136-145)
[2022-03-05 18:44] LABS: #Basophils 0.1 10x3/uL (0.0-0.2); #Eosinphils 0.1 10x3/uL (0.0-0.5); #Monocytes 0.8 10x3/uL (0.0-1.1); #Neutrophils 5.3 10x3/uL (1.5-8.4); %Basophils 0.7 % (0.0-2.0); %Eosinophils 1.7 % (0.0-6.0); %Lymphocytes 11.3 % (18.0-47.0); %Neutrophils 74.5 % (40.0-75.0); Mean Corpuscular HGB CONC 31.7 g/dL (32.0-36.0); Mean Corpuscular Hemoglobin 30.3 pg (27.0-33.0); Mean Corpuscular Volume 95.5 fl (81.2-95.1); Mean Platelet Volume 9.5 fl (7.4-10.4); Platelet Count 317 10x3/uL (150-450); RBC Distribution Width 15.9 % (11.5-14.5); White Blood Cell (WBC) Count 7.2 10x3/uL (3.5-10.5)
[2022-03-05] MEDS ORDERED: Fentanyl 100 MCG/2 ML VIAL ONE (18:54)
[2022-03-05 19:04] LABS: Troponin I 0.026 ng/mL (< 0.028)
[2022-03-05 21:57] LABS: INR-International Normal Ratio 1.5; PTT 34.5 sec (22.0-33.0); Prothrombin Time 15.6 sec (9.5-12.1)
[2022-03-05 22:05] LABS: SARS-CoV-2 NAA Rapid Test Not Detected (NotDetected)
[2022-03-05 23:03] LABS: ALT (SGPT) 27 U/L (8-55); AST (SGOT) 47 U/L (5-34); Albumin 3.6 g/dL (3.4-4.8); Alkaline Phosphatase 114 U/L (40-110); Anion Gap 15 mmol/L (10-20); BUN (Urea Nitrogen) 15 mg/dL (8.4-25.7); Bilirubin, Total 2.6 mg/dL (0.2-1.2); Calc. Creatinine Clearance 0 mL/min (70-130); Calcium 9.2 mg/dL (7.8-10.44); Carbon Dioxide 26 mmol/L (23-31); Chloride 100 mmol/L (98-107); Globulin 3.3 g/dL (2.4-3.5); Glucose 86 mg/dL (83-110); Lipase 40 U/L (8-78); Potassium 4.5 mmol/L (3.5-5.1); Protein, Total 6.9 g/dL (5.8-8.1); Sodium 136 mmol/L (136-145)
== END 2022-03-05 23:55 | disposition short-term general hospital (02) ==
LOC: CSHERS 16:50
DX: R55 Syncope and collapse (principal); I48.91 Unspecified atrial fibrillation; I25.10 Atherosclerotic heart disease of native coronary artery without angina pectoris; I11.0 Hypertensive heart disease with heart failure; I50.9 Heart failure, unspecified; M19.90 Unspecified osteoarthritis, unspecified site; Z86.73 Personal history of transient ischemic attack (TIA), and cerebral infarction without residual deficits
CPT/HCPCS: 71045; 71275; 74177; 80048; 83690; 83880; 84484; 85025; 85610; 85730; 93005; 94760; 96374; 96375; J1200; J2920; J3010; Q9967; S0028; U0002

== ENCOUNTER 2022-11-06 04:05 | Inpatient (IN) | payer OTHER ==
[2022-11-06] MEDS ORDERED: Ketorolac Tromethamine 30 MG/ML VIAL ONE (05:46)
[2022-11-06 06:14] LABS: CKMB 4.4 ng/mL (0-6.6)
[2022-11-06] MEDS ORDERED: NOREPINEPHRINE 8 MG/250 ML-D5W 250 ML ONE (09:20)
[2022-11-06] MEDS ORDERED: Bisacodyl 5 MG TAB PO PRN (09:45)
[2022-11-06] MEDS ORDERED: Calcium Carbonate 500 MG ChewTAB PO PRN (09:45)
[2022-11-06] MEDS ORDERED: Bisacodyl 10 MG SUPP PR PRN (09:45)
[2022-11-06] MEDS ORDERED: Ondansetron PF 4 MG/2 ML Vial IVP PRN (09:45)
[2022-11-06] MEDS ORDERED: NOREPINEPHRINE 8 MG/250 ML-D5W 250 ML IVPB SCH (10:00)
[2022-11-06] MEDS ORDERED: VANCOMYCIN 2 GRAM/400 ML BAG 2 GM in Premix Bag 1 BAG IVPB SCH (10:00)
[2022-11-06 11:05] LABS: Troponin I 0.061 ng/mL (< 0.028)
[2022-11-06 11:06] LABS: PTT 38.7 sec (22.0-33.0); Prothrombin Time 30.5 sec (9.5-12.1)
[2022-11-06 12:04] LABS: SARS-CoV-2 NAA Rapid Test Not Detected (NotDetected)
[2022-11-06 13:34] LABS: Troponin I 0.057 ng/mL (< 0.028)
[2022-11-06 20:45] VITALS: BMI 31.2
[2022-11-06] MEDS ORDERED: Cefepime 1 GM in Sodium Chloride 0.9% 100 ML IVPB SCH (21:00)
[2022-11-06] MEDS ORDERED: Cefepime 1 GM VIAL ONE (21:12)
[2022-11-07] MEDS ORDERED: Acetaminophen 325 MG TAB ONE (00:01)
[2022-11-07 04:10] LABS: Anion Gap 13 mmol/L (10-20); BUN (Urea Nitrogen) 24 mg/dL (8.4-25.7); Calc. Creatinine Clearance 87 mL/min (70-130); Calcium 7.9 mg/dL (7.8-10.44); Carbon Dioxide 20 mmol/L (23-31); Chloride 106 mmol/L (98-107); Estimated GFR 81; Glucose 119 mg/dL (83-110); Potassium 3.8 mmol/L (3.5-5.1); Sodium 135 mmol/L (136-145)
[2022-11-07 04:36] LABS: #Monocytes 1.4 10x3/uL (0.0-1.1); #Neutrophils 11.9 10x3/uL (1.5-8.4); %Basophils 0.3 % (0.0-2.0); %Eosinophils 0.1 % (0.0-6.0); %Lymphocytes 3.3 % (18.0-47.0); %Monocytes 10.2 % (0.0-10.0); %Neutrophils 85.7 % (40.0-75.0); Hemoglobin 10.7 g/dL (13.5-17.5); Mean Corpuscular HGB CONC 32.6 g/dL (32.0-36.0); Mean Corpuscular Hemoglobin 31.5 pg (27.0-33.0); Mean Corpuscular Volume 96.5 fl (81.2-95.1); Platelet Count 200 10x3/uL (150-450); RBC Distribution Width 13.1 % (11.5-14.5); White Blood Cell (WBC) Count 13.9 10x3/uL (3.5-10.5)
[2022-11-07] MEDS ORDERED: Rivaroxaban 10 MG TAB PO SCH (06:00)
[2022-11-07] MEDS ORDERED: Cefepime 2 GM VIAL ONE (08:22)
[2022-11-07] MEDS ORDERED: Clopidogrel Bisulfate 75 MG TAB ONE (08:22)
[2022-11-07] MEDS ORDERED: Carvedilol 3.125 MG TAB ONE ×2 (08:24→08:26)
[2022-11-07] MEDS: Carvedilol 6.25 MG TAB PO SCH ×2 (08:34→17:15)
[2022-11-07] MEDS: Cefepime 2 GM in Sodium Chloride 0.9% 100 ML IVPB SCH ×2 (08:35→20:42)
[2022-11-07] MEDS: Clopidogrel Bisulfate 75 MG TAB PO SCH (08:35)
[2022-11-07] MEDS ORDERED: Furosemide 40 MG/4 ML VIAL ONE ×2 (08:37→16:42)
[2022-11-07] MEDS ORDERED: Ipratropium/Albuterol 3 ML NEB ONE (08:47)
[2022-11-07] MEDS ORDERED: Furosemide 40 MG/4 ML VIAL SLOW IVP SCH ×2 (09:00→17:00)
[2022-11-07] MEDS ORDERED: Lidocaine 5% Patch TD SCH (09:00)
[2022-11-07] MEDS ORDERED: Aspirin 81 mg Enteric Coated Tablet PO SCH (09:00)
[2022-11-07] MEDS: Ipratropium/Albuterol 3 ML NEB NEB SCH ×2 (09:00→15:31)
[2022-11-07] MEDS: Sodium Chloride 0.9% 1,000 ML IV SCH ×4 (09:12→17:18)
[2022-11-07] MEDS: VANCOMYCIN 1.75 GM/350 ML BAG 1.75 GM in Premix Bag 1 BAG IVPB SCH (09:38)
[2022-11-07 14:09] LABS: Troponin I 3.663 ng/mL (< 0.028)
[2022-11-07] MEDS ORDERED: Morphine 2 MG/ML VIAL SLOW IVP PRN (14:30)
[2022-11-07] MEDS: Ipratropium/Albuterol 3 ML NEB NEB PRN (16:10)
[2022-11-07] MEDS ORDERED: Ipratropium/Albuterol 3 ML NEB NEB SCH (17:00)
[2022-11-07 18:18] LABS: Troponin I 2.477 ng/mL (< 0.028)
[2022-11-07] MEDS: Atorvastatin Calcium 40 MG TAB PO SCH (20:41)
[2022-11-07 20:44] LABS: Troponin I 2.289 ng/mL (< 0.028)
[2022-11-07] MEDS ORDERED: Transdermal Patch Removal TOP SCH (21:00)
[2022-11-07] MEDS ORDERED: Benzonatate 100 MG CAP PO SCH (22:00)
[2022-11-08] MEDS: Ipratropium/Albuterol 3 ML NEB NEB PRN ×3 (00:40→13:05)
[2022-11-08 04:57] LABS: Anion Gap 11 mmol/L (10-20); BUN (Urea Nitrogen) 24 mg/dL (8.4-25.7); Calc. Creatinine Clearance 82 mL/min (70-130); Calcium 8.4 mg/dL (7.8-10.44); Carbon Dioxide 26 mmol/L (23-31); Chloride 102 mmol/L (98-107); Estimated GFR 75; Glucose 99 mg/dL (83-110); Sodium 135 mmol/L (136-145)
[2022-11-08 05:12] LABS: #Basophils 0.1 10x3/uL (0.0-0.2); #Eosinphils 0.2 10x3/uL (0.0-0.5); #Monocytes 1.1 10x3/uL (0.0-1.1); #Neutrophils 7.3 10x3/uL (1.5-8.4); %Basophils 0.5 % (0.0-2.0); %Eosinophils 2.4 % (0.0-6.0); %Lymphocytes 7.9 % (18.0-47.0); %Monocytes 11.6 % (0.0-10.0); %Neutrophils 77.3 % (40.0-75.0); Hemoglobin 10.9 g/dL (13.5-17.5); Mean Corpuscular HGB CONC 31.8 g/dL (32.0-36.0); Mean Corpuscular Hemoglobin 31.7 pg (27.0-33.0); Mean Corpuscular Volume 99.7 fl (81.2-95.1); Platelet Count 229 10x3/uL (150-450); RBC Distribution Width 13.2 % (11.5-14.5); Red Blood Cell (RBC) Count 3.44 10x6/uL (4.32-5.72); White Blood Cell (WBC) Count 9.5 10x3/uL (3.5-10.5)
[2022-11-08] MEDS: Furosemide 40 MG/4 ML VIAL SLOW IVP SCH (08:10)
[2022-11-08] MEDS: Carvedilol 6.25 MG TAB PO SCH ×2 (08:10→16:18)
[2022-11-08] MEDS: Cefepime 2 GM in Sodium Chloride 0.9% 100 ML IVPB SCH ×2 (08:11→20:53)
[2022-11-08] MEDS: Clopidogrel Bisulfate 75 MG TAB PO SCH (08:11)
[2022-11-08] MEDS: Benzonatate 100 MG CAP PO SCH ×3 (08:11→20:57)
[2022-11-08] MEDS: HYDROcodone/Acetaminophen 5/325 mg Tablet PO PRN ×2 (08:11→18:14)
[2022-11-08] MEDS: VANCOMYCIN 1.75 GM/350 ML BAG 1.75 GM in Premix Bag 1 BAG IVPB SCH (08:17)
[2022-11-08 08:57] LABS: Vancomycin, Trough 11.5 ug/mL
[2022-11-08] MEDS: Atorvastatin Calcium 40 MG TAB PO SCH (20:57)
[2022-11-09] MEDS: Ipratropium/Albuterol 3 ML NEB NEB PRN ×2 (07:35→17:50)
[2022-11-09] MEDS: Clopidogrel Bisulfate 75 MG TAB PO SCH (08:33)
[2022-11-09] MEDS: Cefepime 2 GM in Sodium Chloride 0.9% 100 ML IVPB SCH (08:33)
[2022-11-09] MEDS: HYDROcodone/Acetaminophen 5/325 mg Tablet PO PRN (08:33)
[2022-11-09] MEDS: VANCOMYCIN 1.75 GM/350 ML BAG 1.75 GM in Premix Bag 1 BAG IVPB SCH (08:33)
[2022-11-09] MEDS: Furosemide 40 MG/4 ML VIAL SLOW IVP SCH (08:34)
[2022-11-09] MEDS: Carvedilol 6.25 MG TAB PO SCH ×2 (08:34→17:00)
[2022-11-09] MEDS: Benzonatate 100 MG CAP PO SCH ×3 (08:34→21:31)
[2022-11-09] MEDS ORDERED: Sodium Chloride 0.9% 100 ML ONE (16:59)
[2022-11-09] MEDS ORDERED: cefTRIAXone\\ROCEPHIN 1 GM VIAL ONE (16:59)
[2022-11-09] MEDS: cefTRIAXone\\ROCEPHIN 1 GM in Sodium Chloride 0.9% 100 ML IVPB SCH (17:00)
[2022-11-09] MEDS: Atorvastatin Calcium 40 MG TAB PO SCH (21:30)
[2022-11-10] MEDS: Ipratropium/Albuterol 3 ML NEB NEB PRN ×3 (04:00→23:30)
[2022-11-10 04:35] LABS: #Basophils 0.1 10x3/uL (0.0-0.2); #Eosinphils 0.2 10x3/uL (0.0-0.5); #Monocytes 0.9 10x3/uL (0.0-1.1); #Neutrophils 5.6 10x3/uL (1.5-8.4); %Basophils 0.7 % (0.0-2.0); %Eosinophils 3.1 % (0.0-6.0); %Monocytes 11.7 % (0.0-10.0); %Neutrophils 74.1 % (40.0-75.0); Hemoglobin 10.8 g/dL (13.5-17.5); Mean Corpuscular HGB CONC 31.2 g/dL (32.0-36.0); Mean Corpuscular Hemoglobin 31.2 pg (27.0-33.0); Mean Platelet Volume 10.3 fl (7.4-10.4); Platelet Count 245 10x3/uL (150-450); Red Blood Cell (RBC) Count 3.46 10x6/uL (4.32-5.72); White Blood Cell (WBC) Count 7.5 10x3/uL (3.5-10.5)
[2022-11-10 04:44] LABS: Anion Gap 9 mmol/L (10-20); BUN (Urea Nitrogen) 20 mg/dL (8.4-25.7); Calc. Creatinine Clearance 108 mL/min (70-130); Carbon Dioxide 29 mmol/L (23-31); Chloride 103 mmol/L (98-107); Estimated GFR 91; Glucose 102 mg/dL (83-110); Potassium 4.3 mmol/L (3.5-5.1); Sodium 137 mmol/L (136-145)
[2022-11-10] MEDS: HYDROcodone/Acetaminophen 5/325 mg Tablet PO PRN (06:48)
[2022-11-10] MEDS: Furosemide 40 MG/4 ML VIAL SLOW IVP SCH (08:41)
[2022-11-10] MEDS: Clopidogrel Bisulfate 75 MG TAB PO SCH (08:42)
[2022-11-10] MEDS: Benzonatate 100 MG CAP PO SCH ×3 (08:42→21:00)
[2022-11-10] MEDS: Carvedilol 6.25 MG TAB PO SCH ×2 (08:42→17:08)
[2022-11-10 12:07] LABS: Actual Bicarbonate (HCO3a) 31.4 mEq/L (22-28); Base Excess (BEa) 4.1 mEq/L (-2.0 to +3.0); CO2 Tension 60.6 mmHg (35.0-45.0); Calcium, Ionized (arterial) 1.21 mmol/L (1.12-1.30); Carboxyhemoglobin (COHb) 0.6 gm% (0.0-3.0); O2 Tension (PaO2), arterial 73.8 mmHg (> 60.0); Puncture Site RRA; pH, Arterial 7.33 (7.35-7.45)
[2022-11-10 15:19] LABS: Actual Bicarbonate (HCO3a) 34.3 mEq/L (22-28); Base Excess (BEa) 7.4 mEq/L (-2.0 to +3.0); CO2 Tension 60.2 mmHg (35.0-45.0); Carboxyhemoglobin (COHb) 0.5 gm% (0.0-3.0); Hemoglobin (Hb) 11.7 g/dL (14.0-18.0); O2 Tension (PaO2), arterial 102.8 mmHg (> 60.0); Puncture Site RRA; pH, Arterial 7.37 (7.35-7.45)
[2022-11-10] MEDS: cefTRIAXone\\ROCEPHIN 1 GM in Sodium Chloride 0.9% 100 ML IVPB SCH (17:13)
[2022-11-10] MEDS ORDERED: Sodium Chloride 0.9% 100 ML ONE (17:14)
[2022-11-10] MEDS: Atorvastatin Calcium 40 MG TAB PO SCH (20:59)
[2022-11-11] MEDS: Phenylephrine 40 MG/NS 250 ML 40 MG in Premix Bag 1 BAG IVPB SCH ×2 (00:59→20:41)
[2022-11-11] MEDS: Ipratropium/Albuterol 3 ML NEB NEB PRN (02:30)
[2022-11-11 05:00] LABS: #Basophils 0.1 10x3/uL (0.0-0.2); #Eosinphils 0.2 10x3/uL (0.0-0.5); #Monocytes 1.1 10x3/uL (0.0-1.1); #Neutrophils 5.8 10x3/uL (1.5-8.4); %Basophils 0.7 % (0.0-2.0); %Eosinophils 2.8 % (0.0-6.0); %Lymphocytes 12.9 % (18.0-47.0); %Monocytes 13.1 % (0.0-10.0); %Neutrophils 69.9 % (40.0-75.0); Hemoglobin 10.9 g/dL (13.5-17.5); Mean Corpuscular HGB CONC 32.2 g/dL (32.0-36.0); Mean Corpuscular Hemoglobin 31.7 pg (27.0-33.0); Mean Corpuscular Volume 98.3 fl (81.2-95.1); Mean Platelet Volume 11.4 fl (7.4-10.4); Platelet Count 216 10x3/uL (150-450); RBC Distribution Width 12.8 % (11.5-14.5); Red Blood Cell (RBC) Count 3.44 10x6/uL (4.32-5.72); White Blood Cell (WBC) Count 8.2 10x3/uL (3.5-10.5)
[2022-11-11 05:07] LABS: ALT (SGPT) 25 U/L (8-55); AST (SGOT) 31 U/L (5-34); Albumin 2.6 g/dL (3.4-4.8); Alkaline Phosphatase 87 U/L (40-110); Anion Gap 14 mmol/L (10-20); BUN (Urea Nitrogen) 19 mg/dL (8.4-25.7); Bilirubin, Total 0.9 mg/dL (0.2-1.2); Calc. Creatinine Clearance 110 mL/min (70-130); Carbon Dioxide 30 mmol/L (23-31); Chloride 101 mmol/L (98-107); Estimated GFR 91; Globulin 2.8 g/dL (2.4-3.5); Glucose 96 mg/dL (83-110); Protein, Total 5.4 g/dL (5.8-8.1); Sodium 141 mmol/L (136-145)
[2022-11-11] MEDS: Furosemide 40 MG/4 ML VIAL SLOW IVP SCH (08:39)
[2022-11-11] MEDS: Clopidogrel Bisulfate 75 MG TAB PO SCH (08:42)
[2022-11-11] MEDS: Benzonatate 100 MG CAP PO SCH ×3 (08:42→22:52)
[2022-11-11] MEDS: Carvedilol 6.25 MG TAB PO SCH (08:42)
[2022-11-11] MEDS ORDERED: NOREPINEPHRINE 8 MG/250 ML-D5W 250 ML ONE (13:07)
[2022-11-11] MEDS: NOREPINEPHRINE 8 MG/250 ML-D5W 250 ML IVPB SCH ×2 (13:09→19:48)
[2022-11-11] MEDS ORDERED: Sodium Chloride 0.9% 500 ML IVPB SCH (15:30)
[2022-11-11 16:02] LABS: Troponin I 1.252 ng/mL (< 0.028)
[2022-11-11] MEDS ORDERED: Aspirin 325 mg Enteric Coated Tablet PO SCH (17:15)
[2022-11-11] MEDS: cefTRIAXone\\ROCEPHIN 1 GM in Sodium Chloride 0.9% 100 ML IVPB SCH (17:48)
[2022-11-11 18:14] LABS: Lactic Acid 6.2 mmol/L (0.5-2.2)
[2022-11-11] MEDS ORDERED: Sodium Chloride 0.9% 1,000 ML IV SCH (19:15)
[2022-11-11] MEDS: Vasopressin 20 UNIT, Admixture Fee 1 EACH in Sodium Chloride 0.9% 50 ML IV SCH ×2 (20:11→23:00)
[2022-11-11] MEDS ORDERED: EPINEPHrine 1 MG/10 ML Abboject SYRINGE ONE ×2 (20:13→23:02)
[2022-11-11] MEDS ORDERED: Lorazepam 2 MG/ML VIAL SLOW IVP PRN (20:15)
[2022-11-11] MEDS ORDERED: Propofol 1,000 MG/100 ML VIAL IV PRN (20:15)
[2022-11-11] MEDS ORDERED: DISCONTINUE PREVIOUS NARCOTIC PAIN MEDICATIONS AND BENZODIAZEPINES FS SCH (20:15)
[2022-11-11] MEDS ORDERED: Morphine 2 MG/ML VIAL SLOW IVP PRN (20:15)
[2022-11-11] MEDS ORDERED: Fentanyl BOLUS 250 ML IVPB PRN (20:15)
[2022-11-11] MEDS ORDERED: Propofol BOLUS 1,000 MG/100 ML VIAL IV PRN (20:15)
[2022-11-11] MEDS ORDERED: Midazolam In 0.9 % NaCl/PF 100 ML ONE (20:18)
[2022-11-11] MEDS ORDERED: Midazolam In 0.9 % NaCl/PF 100 MG in Premix Bag 1 BAG IVPB SCH (20:30)
[2022-11-11] MEDS: Phenylephrine 40 MG in Sodium Chloride 0.9% 250 ML 250 ML IVPB SCH (20:41)
[2022-11-11 20:49] LABS: Troponin I 1.388 ng/mL (< 0.028)
[2022-11-11 21:48] LABS: Actual Bicarbonate (HCO3a) 19.8 mEq/L (22-28); Base Excess (BEa) -3.3 mEq/L (-2.0 to +3.0); Carboxyhemoglobin (COHb) 0.2 gm% (0.0-3.0); Critical Notified By: CP.PH; Hemoglobin (Hb) 7.4 g/dL (14.0-18.0); O2 Tension (PaO2), arterial 152.7 mmHg (> 60.0); Potassium - ABG Lab 4.4 mmol/L (3.70-5.30); Puncture Site Arterial Line; RapidComm Collect By CP.PH; pH, Arterial 7.47 (7.35-7.45)
[2022-11-11] MEDS ORDERED: Lactated Ringer's 1,000 ML IV SCH (22:00)
[2022-11-11 22:39] LABS: INR-International Normal Ratio 2.2; Prothrombin Time 23.1 sec (9.5-12.1)
[2022-11-11 22:49] LABS: #Basophils 0.1 10x3/uL (0.0-0.2); #Monocytes 2.1 10x3/uL (0.0-1.1); #Neutrophils 14.6 10x3/uL (1.5-8.4); %Basophils 0.3 % (0.0-2.0); %Lymphocytes 11.1 % (18.0-47.0); %Monocytes 10.8 % (0.0-10.0); %Neutrophils 75.1 % (40.0-75.0); Anion Gap 23 mmol/L (10-20); BUN (Urea Nitrogen) 33 mg/dL (8.4-25.7); Calc. Creatinine Clearance 39 mL/min (70-130); Calcium 8.1 mg/dL (7.8-10.44); Carbon Dioxide 18 mmol/L (23-31); Chloride 103 mmol/L (98-107); Estimated GFR 31; Glucose 157 mg/dL (83-110); Hemoglobin 6.9 g/dL (13.5-17.5); Magnesium 2.2 mg/dL (1.6-2.6); Mean Corpuscular HGB CONC 32.5 g/dL (32.0-36.0); Mean Corpuscular Hemoglobin 31.9 pg (27.0-33.0); Mean Corpuscular Volume 98.1 fl (81.2-95.1); Platelet Count 436 10x3/uL (150-450); Potassium 5.1 mmol/L (3.5-5.1); RBC Distribution Width 13.3 % (11.5-14.5); Red Blood Cell (RBC) Count 2.16 10x6/uL (4.32-5.72); Sodium 139 mmol/L (136-145); White Blood Cell (WBC) Count 19.4 10x3/uL (3.5-10.5)
[2022-11-11 22:51] LABS: Troponin I 1.365 ng/mL (< 0.028)
[2022-11-11] MEDS ORDERED: EPINEPHrine 4 MG in Dextrose 5% in Water 250 ML IV SCH (23:45)
[2022-11-12] MEDS ORDERED: Protamine Sulfate 50 MG/5 ML VIAL IVPB SCH (00:15)
[2022-11-12] MEDS: FENTANYL 2,000MCG/100-0.9%NACL 100 ML IVPB SCH ×2 (00:20→10:31)
[2022-11-12] MEDS ORDERED: PROTAMINE IVPB SCH (00:30)
[2022-11-12] MEDS ORDERED: SODIUM CHLORIDE 0.9% IVPB SCH (00:30)
[2022-11-12] MEDS: Phenylephrine 40 MG in Sodium Chloride 0.9% 250 ML 250 ML IVPB SCH ×4 (00:59→12:54)
[2022-11-12] MEDS: NOREPINEPHRINE 8 MG/250 ML-D5W 250 ML IVPB SCH ×3 (00:59→12:54)
[2022-11-12] MEDS: Atorvastatin Calcium 40 MG TAB PO SCH (03:36)
[2022-11-12 04:38] LABS: ALT (SGPT) 206 U/L (8-55); AST (SGOT) 317 U/L (5-34); Albumin 2.4 g/dL (3.4-4.8); Alkaline Phosphatase 95 U/L (40-110); Anion Gap 21 mmol/L (10-20); BUN (Urea Nitrogen) 36 mg/dL (8.4-25.7); Calc. Creatinine Clearance 38 mL/min (70-130); Carbon Dioxide 19 mmol/L (23-31); Chloride 104 mmol/L (98-107); Estimated GFR 30; Globulin 2.3 g/dL (2.4-3.5); Glucose 186 mg/dL (83-110); Potassium 4.5 mmol/L (3.5-5.1); Protein, Total 4.7 g/dL (5.8-8.1); Sodium 139 mmol/L (136-145)
[2022-11-12 04:44] LABS: #Basophils 0.1 10x3/uL (0.0-0.2); #Monocytes 3.2 10x3/uL (0.0-1.1); #Neutrophils 16.4 10x3/uL (1.5-8.4); %Basophils 0.4 % (0.0-2.0); %Eosinophils 0.1 % (0.0-6.0); %Lymphocytes 12.3 % (18.0-47.0); %Monocytes 13.9 % (0.0-10.0); %Neutrophils 70.5 % (40.0-75.0); Mean Corpuscular HGB CONC 34.2 g/dL (32.0-36.0); Mean Corpuscular Hemoglobin 30.7 pg (27.0-33.0); Mean Corpuscular Volume 89.9 fl (81.2-95.1); Mean Platelet Volume 11.3 fl (7.4-10.4); Platelet Count 319 10x3/uL (150-450); Red Blood Cell (RBC) Count 3.58 10x6/uL (4.32-5.72); White Blood Cell (WBC) Count 23.2 10x3/uL (3.5-10.5)
[2022-11-12 06:02] LABS: Band 2 % (5-11); Lymphocytes 15 % (21-51); Monocytes 14 % (0-10)
[2022-11-12 06:03] LABS: Neutrophil 69 % (42-75)
[2022-11-12 06:07] LABS: Giant Platelets SLIGHT; Hypochromia SLIGHT = 6-15 cells (100X) (0-5/hpf); Macrocytosis SLIGHT = 6-15 cells (100X) (0-5/hpf); Microcytosis SLIGHT = 6-15 cells (100X) (0-5/hpf); Platelet Morphology Comment Appears Adequate; Polychromasia SLIGHT = 2-3 cells (100X) (0-2/hpf)
[2022-11-12 06:22] LABS: INR-International Normal Ratio 1.5; Prothrombin Time 15.6 sec (9.5-12.1)
[2022-11-12] MEDS: Vasopressin 20 UNIT, Admixture Fee 1 EACH in Sodium Chloride 0.9% 50 ML IV SCH (06:47)
[2022-11-12 07:50] LABS: Actual Bicarbonate (HCO3a) 24.1 mEq/L (22-28); Base Excess (BEa) 0.4 mEq/L (-2.0 to +3.0); CO2 Tension 35.5 mmHg (35.0-45.0); Calcium, Ionized (arterial) 1.08 mmol/L (1.12-1.30); Carboxyhemoglobin (COHb) 0.1 gm% (0.0-3.0); Hemoglobin (Hb) 11.6 g/dL (14.0-18.0); O2 Tension (PaO2), arterial 78.4 mmHg (> 60.0); Potassium - ABG Lab 4.1 mmol/L (3.70-5.30); Puncture Site Arterial Line; pH, Arterial 7.45 (7.35-7.45)
[2022-11-12 07:55] LABS: ALV-art Gradient 162.425 mmHg (0-20)
[2022-11-12] MEDS: Furosemide 40 MG/4 ML VIAL SLOW IVP SCH (08:40)
[2022-11-12] MEDS ORDERED: Aspirin 325 mg Enteric Coated Tablet PO SCH (09:00)
[2022-11-12] MEDS: Benzonatate 100 MG CAP PO SCH ×2 (09:56→16:39)
[2022-11-12 12:08] VITALS: TEMP 100
[2022-11-12] MEDS ORDERED: cefTRIAXone\\ROCEPHIN 2 GM in Sodium Chloride 0.9% 100 ML IVPB SCH (13:00)
[2022-11-12 17:58] VITALS: BP 111/74
== END 2022-11-12 16:10 | disposition short-term general hospital (02) | DRG 871 ==
LOC: CSHERS 04:05 → CSHTELE 09:25 → EEVIPCON 19:38 → CSHERHOLD 19:38 → CSHTELE 11-07 15:15 → CSHICU 11-10 12:32
PROVIDERS: ADMIT Family Medicine; ATTEND Family Medicine
PROC: 06HY33Z Insertion of Infusion Device into Lower Vein, Percutaneous Approach (ICD-10-PCS; 2022-11-06)
PROC: 3E043XZ Introduction of Vasopressor into Central Vein, Percutaneous Approach (ICD-10-PCS; 2022-11-06)
PROC: 3E03329 Introduction of Other Anti-infective into Peripheral Vein, Percutaneous Approach (ICD-10-PCS; 2022-11-06)
PROC: 5A09357 Assistance with Respiratory Ventilation, Less than 24 Consecutive Hours, Continuous Positive Airway Pressure (ICD-10-PCS; 2022-11-10)
PROC: 03HY32Z Insertion of Monitoring Device into Upper Artery, Percutaneous Approach (ICD-10-PCS; principal; 2022-11-11)
PROC: 4A133B1 Monitoring of Arterial Pressure, Peripheral, Percutaneous Approach (ICD-10-PCS; 2022-11-11)
PROC: 4A133J1 Monitoring of Arterial Pulse, Peripheral, Percutaneous Approach (ICD-10-PCS; 2022-11-11)
PROC: 0BH17EZ Insertion of Endotracheal Airway into Trachea, Via Natural or Artificial Opening (ICD-10-PCS; 2022-11-11)
PROC: 5A1935Z Respiratory Ventilation, Less than 24 Consecutive Hours (ICD-10-PCS; 2022-11-11)
PROC: 30233K1 Transfusion of Nonautologous Frozen Plasma into Peripheral Vein, Percutaneous Approach (ICD-10-PCS; 2022-11-12)
PROC: 30233N1 Transfusion of Nonautologous Red Blood Cells into Peripheral Vein, Percutaneous Approach (ICD-10-PCS; 2022-11-12)
DX: A41.51 Sepsis due to Escherichia coli [E. coli] (principal); G93.41 Metabolic encephalopathy; I21.A1 Myocardial infarction type 2; R65.21 Severe sepsis with septic shock; I50.33 Acute on chronic diastolic (congestive) heart failure; J96.92 Respiratory failure, unspecified with hypercapnia; R57.1 Hypovolemic shock; N39.0 Urinary tract infection, site not specified; E66.2 Morbid (severe) obesity with alveolar hypoventilation; N17.9 Acute kidney failure, unspecified; I11.0 Hypertensive heart disease with heart failure; R58 Hemorrhage, not elsewhere classified; Z20.822 Contact with and (suspected) exposure to COVID-19; I48.0 Paroxysmal atrial fibrillation; E78.5 Hyperlipidemia, unspecified; I25.10 Atherosclerotic heart disease of native coronary artery without angina pectoris; Z91.041 Radiographic dye allergy status; Z79.899 Other long term (current) drug therapy; Z86.73 Personal history of transient ischemic attack (TIA), and cerebral infarction without residual deficits; Z82.49 Family history of ischemic heart disease and other diseases of the circulatory system; Z83.3 Family history of diabetes mellitus; Z98.890 Other specified postprocedural states; Z87.891 Personal history of nicotine dependence; Z95.5 Presence of coronary angioplasty implant and graft; Z68.31 Body mass index [BMI] 31.0-31.9, adult
CPT/HCPCS: 36415; 36430; 36556; 36600; 70450; 71045; 72125; 74176; 80048; 80053; 80202; 82140; 82553; 82805; 83605; 83735; 83880; 84443; 84484; 85025; 85610; 85730; 86850; 86900; 86901; 87040; 87811; 93005; 93010; 93306; 94002; 94003; 94640; 94660; 94760; 96374; 96375; 99292; J0171; J0692; J0696; J1650; J1885; J1940; J2370; J2720; J3370; J3490; J7030; J7050; J7070; J7120; J7620; P9016; P9059; U0002